=== PATIENT | female | born 1975 | race Caucasian/White ===

== ENCOUNTER 2022-05-07 09:00 | Outpatient (RCR) | payer BC, SELFPAY ==
[2022-04-27 10:27] VITALS: TEMP 36.6
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
[2022-04-28 14:10] LABS: Amphetamine Screen Urine Not Detected (Not Detect); Barbiturates, Urine Not Detected (Not Detect); Benzodiazepines Screen Urine Not Detected (Not Detect); Cannabinoid Screen Urine Not Detected (Not Detect); Cocaine Screen Urine Not Detected (Not Detect); Fentanyl, urine Not Detected (Not Detect); Opiate Screen Urine Not Detected (Not Detect); Phencyclidine Screen Urine Not Detected (Not Detect)
--- NOTE | 2022-04-29 13:05 | HO.PHPIOP ---
I met with pt to review treatment plan. We also discussed aftercare plans and schedule. Pt reported benefiting from the program so far despite an intense sense of guilt for being in program and being in the role of client instead of helper. She was, however, able to see how this might be a good practice in self care. She reported ongoing anxiety, mostly when she returns home each day, and reported some benefit from medications prescribed. Pt has a therapist, and no med provider. She has a name of a med provider (Ange Davis- [phone]) given to her by her therapist and she agreed to call this person to try to get an appointment. I told her I'd help with a referral if this does not rizo out. Pt agreed to a tentative discharge date of Tuesday05/12/22.
--- NOTE | 2022-04-29 15:13 | HO.PHPIOP ---
Case opened in treatment team.
--- NOTE | 2022-05-06 13:35 | HO.PHPPROGNO ---
Subjective Subjective Date of Service: 05/06/22 Reason For Visit: depression,anxiety Medical Problems Affecting Mental Status: No Interim History: Reports increased symptoms of anxiety/panic/rage. States has difficulty containing self when contact within long as, which has been occurring more frequently due to sports games. Took a clonidine this morning with positive affect. Having difficulty with daily structure, especially between 4 and 20:00. Has drank several times when experiencing rage. Medication Compliance: Yes Side effects from medications: No Attending Groups: Yes Review of Systems Acute medical concerns: No Medical Review of Systems: unchanged Review of Systems Review of Systems Yes all other systems are reviewed and are negative Constitutional: Reports no additional constitutional complaints Mental Status Exam Mental Status Exam Narrative: NAD Patient Appearance: Well Grooomed and Appropriate Patient Orientation: Person, Place, Time and Situation Level of Consciousness: Awake, Appropriate and Alert Patient Behavior: Appropriate Mood Description: Depressed and Anxious Affect Description: Depressed and Anxious Patient Cognition Impaired: No Ability to Follow Directions: Excellent Speech Pattern: Clear Memory Description: Intact Delusions: Not Present Perceptual Disturbances: Depersonalization Thought Content: positive for Intact Depressive Symptoms: Increased Anxiety, Increased Irritability, Difficulty Sleeping, Loss of Int. in Activity, Feelings of Worthlessness, Hopelessness, Isolating-Friends/Family, Feelings of Guilt, Unhappiness, Increased Fatigue, Loss of Energy and Difficulty Concentrating Judgement: Fair Assessment & Plan Assessment & Plan (1) Major depressive disorder, recurrent severe without psychotic features: Status: Acute Code(s): F33.2 - Major depressive disorder, recurrent severe without psychotic features Assessment and Plan: Patient continues with anxious/depressed mood an affect. Has been taking fluoxetine, with recent increased to 20 mg daily, over past week. Reports becoming overwhelmed when in contact with in-laws, which has been happening more frequently due to sports activities. States that she becomes super anxious during these times, with heightened sense of arousal. Utilizing clonidine was some affect. Her therapist has given her a name of a psychiatric provider, she plans to call the person today. Willing to try increase in clonidine from b.i.d. p.r.n. to t.i.d. p.r.n.. (2) Panic disorder: Status: Acute Code(s): F41.0 - Panic disorder [episodic paroxysmal anxiety] (3) Alcohol abuse: Status: Acute Code(s): F10.10 - Alcohol abuse, uncomplicated Assessment and Plan: Patient reports drinking several times over past week, states that she does this when she becomes rageful, as a coping mechanism. Discussed practicing healthier coping skills. Plan 1. Continue with current [facility] plan of care. 2. Increase clonidine to 0.1 mg t.i.d. p.r.n./anxiety. 3. Continue with Prozac 20 mg. 4. Follow-up as per protocol. Patient educated on: diagnosis, medication risk/benefits, substance abuse and therapeutic strategies Informed Consent: understands Reason for contiued partial hosp. stay Substantial Risk for: harm to self, inability to function and rapid decompensation Certification I certify that partial hospital treatment is medically necessary due to the symptoms and problems resulting from the patient's mental illness and the failure to treat the patient at the partial hospital level of care would likely result in the patient requiring inpatient psychiatric care which could not be prevented at a less intensive level of care. I spent minutes with the patient and/or on the patient floor today, greater than?50% of which was spent counseling/coordinating care. Discharge Plan Discharge Attending provider: Jarred Shah Medications: New clonidine HCl 0.1 mg tablet 0.1 mg PO TID PRN (Reason: anxiety) Qty: 30 0RF fluoxetine 20 mg capsule 20 mg PO DAILY Qty: 30 0RF Stand Alone Forms: Patient Portal Discharge page Patient Education: Clonidine (By mouth), Fluoxetine (By mouth)
--- NOTE | 2022-05-11 14:46 | HO.PHPIOP ---
I called and left a message for pt to talk about attendance. I asked her to call and listed a few options including discharging tomorrow, staying a few more days, or discharging now if she's too busy to attend tomorrow. Pt has called out today and yesterday, and I let her know that if she's out again tomorrow we will have to discharge.
--- NOTE | 2022-05-12 13:38 | HO.PHPIOP ---
I called and left a message for pt's therapist, Emeka Munoz ([phone]). I let her know about pt's discharge from [facility] and asked her to pls call if needed.
--- NOTE | 2022-05-12 15:53 | HO.PHPIOP ---
Pt called and left a message at 8pm on 05/11/22 stating she wishes to attend and discharge from program today (05/12). She said she is safe and okay, but unable to continue due to needing to take care f her daughter who has been in the hospital in [place] with a broken ankle. She then called and spoke to Dodie, the corporation secretary in the morning today, stating she cannot be in today. Per Dodie, she said she is doing okay, but too busy to attend. I called back and left her a message asking her to pls call.
== END 2022-05-07 23:59 | disposition home or self-care (01) ==
LOC: HO.PHPA 09:00
PROVIDERS: Nurse Practitioner Psychiatric/Mental Health; Visit Provider Psychiatry & Neurology Psychiatry
DX: F33.2 Major depressive disorder, recurrent severe without psychotic features (principal); F41.0 Panic disorder [episodic paroxysmal anxiety]; F10.10 Alcohol abuse, uncomplicated; Z79.899 Other long term (current) drug therapy
CPT/HCPCS: 80307; 90791; 90792; 90853